=== PATIENT | male | born 1990 | race Two or more races ===

== ENCOUNTER 2025-03-10 06:50 | Day surgery (SDC) | payer MEDICAID, SELFPAY ==
[2025-03-06 08:04] VITALS: BMI 53.8
[2025-03-06 09:12] LABS: INR 1.0 (0.9-1.3); Partial Thromboplastin Time 25.9 Seconds (22.0-36.0); Prothrombin Time 10.3 Seconds (9.0-12.2)
[2025-03-06 09:13] LABS: Alanine Aminotransferase 151 U/L (10-49); Albumin, Serum 4.4 gm/dL (3.5-5.0); Albumin/Globulin Ratio 1.4 (1.2-2.2); Alkaline Phosphatase 153 U/L (46-116); Anion Gap 11 (7-16); Aspartate Amino Transferase 73 U/L (0-34); BUN/Creatinine Ratio 12 Ratio (12-20); Bilirubin,Total 0.6 mg/dL (0.3-1.2); Blood Urea Nitrogen 11 mg/dL (9-23); Calcium 8.7 mg/dL (8.3-10.6); Calcium (Corrected) 8.7 mg/dL (8.5-10.1); Carbon Dioxide 27.1 mMol/L (20.0-31.0); Chloride 103 mMol/L (98-107); Creatinine (Component) 0.9 mg/dL (0.6-1.3); Estimated Creatinine Clearance 163.8 mL/min (>60); Globulin 3.2 gm/dL (2.3-3.5); Glucose 144 mg/dL (74-106); Osmolality,Calculated 283 (275-295); Potassium 4.0 mMol/L (3.4-5.1); Sodium 141 mMol/L (136-145); Total Protein 7.6 gm/dL (5.7-8.2); eGFR > 60 See Note
[2025-03-06 09:20] LABS: Basophils # (Auto) 0.1 Thou/mm3 (0.0-0.2); Basophils % (Auto) 1 % (0-2.5); Eosinophils # (Auto) 0.2 Thou/mm3 (0.0-0.5); Eosinophils % (Auto) 2 % (0-10); Hematocrit 44.8 % (41.0-53.0); Hemoglobin 14.8 g/dL (13.5-16.0); Immature Granulocytes Auto 0.04 Thou/mm3 (0.00-0.00); Lymphocytes # (Auto) 2.7 Thou/mm3 (1.0-4.8); Lymphocytes % (Auto) 31 % (10-50); Mean Corpuscular HGB Conc 33.0 g/dl (31.0-37.0); Mean Corpuscular Hemoglobin 27.1 pg (25.0-35.0); Mean Corpuscular Volume 82 fL (80-100); Monocytes # (Auto) 0.5 Thou/mm3 (0.0-0.8); Monocytes % (Auto) 6 % (0-12); Neutrophils # (Auto) 5.3 Thou/mm3 (1.8-7.7); Neutrophils % (Auto) 61 % (37-80); Nucleated Red Blood Cell # 0.00 Thou/mm3 (0.00-0.00); Nucleated Red Blood Cell % 0 /100 WBC (0); Platelet Count 247 Thou/mm3 (140-440); RDW Standard Deviation 40.1 fL (35.1-43.9); Red Blood Count 5.46 Miln/mm3 (4.50-5.90); White Blood Count 8.7 Thou/mm3 (3.8-10.6)
--- NOTE | 2025-03-09 12:44 | SUR.PREOP ---
Pt notified to come in at 0700 tomorrow for surgery.
[2025-03-10] VITALS (8 sets, daily range): BP systolic 101–133; BP diastolic 68–85; PULSE 91–101; RESP 13–20; TEMP 36.2–37.1; O2SAT 90–98; BMI 52.8
--- NOTE | 2025-03-10 10:54 | SUR.PHASEI ---
1054: Pt. wakes to name and and then drifts to sleep, vitals stable, breathing unlabored, no complaint of pain or nausea, dressing to scrotum CDI, no active bleed noted, report received from Luis Manuel HERNANDEZ and Cody GUEVARA.
--- NOTE | 2025-03-10 11:00 | ESOP_ITS ---
Date of Procedure 03/10/25 Pre Op Diagnosis Elective sterilization Post Op Diagnosis Same Procedure Bilateral vasectomy Findings Patient was found to have a small mass on both sides making it very difficult to dissect out Procedure Description After the patient was brought operating room he was given LMA general anesthesia. His genitalia was washed with ChloraPrep solution and draped in a sterile manner. Timeout was performed. Then I chose the right side and I was feeling the vas and held it between my index finger and the thumb and I injected 1% Xylocaine with epinephrine and sodium bicarbonate. Then made a small incision over the mass and the vas was grasped with towel clips and it was dissected out. A small segment was taken out measuring more than a centimeter the end was tied with 3-0 silk on the divided it was coagulated with cautery. Then the skin was closed with 3-0 chromic sutures. The same thing was performed on the left side but I could not find out the vas. At this time I needed help from Dr. Webber who came and helped to isolate the's. Bursectomy was then performed in the same manner. On the right side since the mass was very small I asked to have frozen section the pathologist identified the vas segment. Dressing was applied with topical ointment and fluffs and scrotal bandage. Patient tolerated procedure well. Anesthesia other (General LMA) Pathology / specimen Other (Vas deferens from the right side, vas deferens from the left) Estimated Blood Loss 20 Surgeon Karena Pascual MD Surgical Staff Operation Date: 03/10/25 09:00 Case Staff Assisting Surgeon: Tha Webber MISSION COORDINATOR: Luis Manuel Kelly Jr
[2025-03-10] MEDS: HYDROcodone/APAP 7.5/325 TABLET 1 TAB PO (11:45)
--- NOTE | 2025-03-10 12:00 | SUR.PHASEII ---
1200: Pt. AAOx4, vitals stable, breathing unlabored, no complaint of pain or nausea, dressing to scrotum CDI, no active bleed noted, pt. tolerated sips of water well, pt. ambulated to wheelchair with steady gait and no assist, no complications. Gave discharge instructions to the pt. and his ride, both verbalized understanding and had no further questions. Pt. left with all personal belongings.
== END 2025-03-10 12:00 | disposition home or self-care (01) ==
PROVIDERS: PCP Family Medicine; Referring Provider Surgery; Visit Provider Surgery
PROC: (CPT 55250; principal; 2025-03-10 09:00)
DX: Z30.2 Encounter for sterilization (principal); E66.01 Morbid (severe) obesity due to excess calories; Z68.43 Body mass index [BMI] 50.0-59.9, adult
CPT/HCPCS: 55250; 36415; 80053; 85025; 85610; 85730; A4217; A4649; J2250; J2704; J3010; J3490; L8330; A9270